=== PATIENT | male | born 1980 | race Hispanic/Latino ===

== ENCOUNTER 2022-03-22 22:47 | Emergency (ER) | payer OTHER ==
[~2022-03-22] VITALS: Ht 157.5 cm; Wt 90.7 kg
[2022-03-23] MEDS ORDERED: TIZA4CAP8 PO (01:18)
[2022-03-23 01:19] VITALS: BP 129/70
== END 2022-03-23 01:27 | disposition home or self-care (01) ==
LOC: EDH 22:47
DX: S29.012A Strain of muscle and tendon of back wall of thorax, initial encounter (principal); X58.XXXA Exposure to other specified factors, initial encounter; Y93.89 Activity, other specified; Y92.89 Other specified places as the place of occurrence of the external cause; Y99.8 Other external cause status
CPT/HCPCS: 70450